=== PATIENT | male | born 1960 | race Caucasian/White ===

== ENCOUNTER 2017-11-20 07:09 | Day surgery (SDC) | payer OTHER ==
[2017-11-20 08:00] VITALS: BMI 25.8
[2017-11-20 08:39] VITALS: TEMP 97.9
[2017-11-20 09:07] VITALS: PULSE 55
[2017-11-20 11:54] VITALS: BP 125/83
--- NOTE | 2017-11-21 16:36 | PATH ---
Surgical Pathology Report Patient Name: GENNARO ERNANDEZ [facility]. Rec. #: [id number] /Age/Gender: 1960 (Age: 57) / M Account: [id number] Location: U-ENDOSCOPY Taken: 11/20/2017 Received: 11/20/2017 Reported: 11/21/2017 Physicians: Darian Iqbal M.D. Specimen(s) Received BX BODY Clinical History Persistent nausea/vomiting, heartburn Postoperative diagnosis: Severe gastritis Final Diagnosis BODY, BIOPSY: GASTRIC MUCOSA WITH MODERATE TO SEVERE ACTIVE CHRONIC GASTRITIS. IMMUNOSTAIN IS POSITIVE FOR H. PYLORI ORGANISMS. NEGATIVE FOR INTESTINAL METAPLASIA Electronically Signed Orlin Rizvi M.D. Gross Description Received in formalin, labeled "biopsy body" are 3 carter, irregular portions of soft tissue ranging from 0.2-0.4 cm. in greatest dimension. The specimens are submitted in toto in one cassette. /11/20/2017 saudi11/20/2017
== END 2017-11-20 09:55 | disposition home or self-care (01) ==
LOC: JASU-ENDO 07:09
PROVIDERS: ATTEND Internal Medicine Gastroenterology
PROC: 0DB68ZX Excision of Stomach, Via Natural or Artificial Opening Endoscopic, Diagnostic (ICD-10-PCS; principal; 2017-11-20 09:45)
DX: K29.00 Acute gastritis without bleeding (principal)
CPT/HCPCS: 88305-TC; 88342-TC